=== PATIENT | male | born 1980 | race Caucasian/White ===

== ENCOUNTER 2017-08-12 17:06 | Emergency (ER) | payer SELFPAY ==
[~2017-08-12] VITALS: Ht 182.9 cm; Wt 115.0 kg
[~2017-08-12 17:06] MED LIST: LORT5TAB PO; Z.0.NO CURRENT MEDS; [UNRECOGNIZED DRUG - OTHER] AD
[2017-08-12 17:27] VITALS: BP 140/66; PULSE 111; RESP 18; TEMP 98.5; O2SAT 95
[2017-08-12] MEDS ORDERED: BACT800T5 PO (19:18)
[2017-08-12] MEDS ORDERED: CYCL10TA PO (19:18)
[2017-08-12] MEDS ORDERED: DICL75TA PO (19:18)
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
[2017-08-12 19:30] VITALS: BP 125/80
== END 2017-08-12 19:31 | disposition home or self-care (01) ==
LOC: NEPD 17:06
DX: M54.9 Dorsalgia, unspecified (principal); L73.9 Follicular disorder, unspecified; F17.200 Nicotine dependence, unspecified, uncomplicated
CPT/HCPCS: 99283